=== PATIENT | male | born 2000 | race Caucasian/White ===

== ENCOUNTER 2023-12-27 18:53 | Outpatient (OUT) | payer OTHER, SELFPAY ==
--- NOTE | 2023-12-27 19:21 | XR_ITS ---
The [address] [address] Patient Name: STEPHANY SANTOS MRN: [id number] date: 2000 Sex: M Assigned Patient Location: [facility] Current Patient Location: Accession/Order Number: [id number] Exam Date: 12/27/2023 19:26 Report Date: 12/28/2023 06:15 At the request of: RANGEL MCKENNA Procedure: XR thoracic spine 2V Three views of the thoracic spine INDICATION: Pain COMPARISON: None XR/XR thoracic spine 2V IMPRESSION: No significant multilevel degenerative changes of the thoracic spine without evidence for acute fracture or subluxation. Soft tissues grossly unremarkable. Electronically authenticated by: BETH WYATT Date: 12/28/2023 06:15
--- NOTE | 2023-12-27 19:21 | XR_ITS ---
The [address] [address] Patient Name: STEPHANY SANTOS MRN: [id number] date: 2000 Sex: M Assigned Patient Location: RAD Current Patient Location: [facility] Accession/Order Number: [id number] Exam Date: 12/27/2023 19:26 Report Date: 12/28/2023 06:44 At the request of: RANGEL MCKENNA Procedure: XR lumbar spine 2-3V EXAMINATION: XR lumbar spine 2-3V HISTORY: Low back pain at multiple sites M54.50 COMPARISON: No relevant comparison available. FINDINGS: BONES: No significant spondylosis, scoliosis, fracture, or visible bony lesion. DISC SPACES: No significant disc height narrowing, subluxation, or endplate abnormality. PARASPINOUS: Negative. No paraspinous abnormality is seen. OTHER: Negative. XR/XR lumbar spine 2-3V IMPRESSION: 1. No appreciable acute abnormality or degenerative changes. Electronically authenticated by: STEPHANIE LACY Date: 12/28/2023 06:44
== END 2023-12-27 18:54 | disposition home or self-care (01) ==
LOC: RAD 18:58
PROVIDERS: PCP Family Medicine; Visit Provider Family Medicine
DX: M54.50 Low back pain, unspecified (principal)
CPT/HCPCS: 72070; 72100

== ENCOUNTER 2025-03-23 06:43 | Outpatient (OUT) | payer OTHER, SELFPAY ==
--- OUTSIDE RECORDS SUMMARY | 2025-03-09 07:25 | XMS_ITS ---
Author Organization The [facility] in [place] Address [address] [place] [address] Care Team Providers Care Allergy And Immunology Specialist Name Role Phone Arnoldo Morales Primary Care Provider REASON FOR VISIT EMG Results- Encounters Encounter Location Date Provider Diagnosis [facility] [address] [place] [address] 03/09/2025 Arnoldo Morales Paresthesia of arm R20.2 Assessments Encounter Date Diagnosis (ICD Code) Assessment Notes Treatment Notes Treatment Clinical Notes Section Notes 03/09/2025 Paresthesia of arm (ICD-10 - R20 .2) Plan Of Treatment Pending Test Test Name Order Date MRI Cervical Spine w/o contrast * 2024 Progress Notes * German PURIDOB:[birth year] (25 yo M)Acc No.[id number]:03/09/2025 Patient:?German PURI :2000???Age:25 Y???Sex:MalePhone:[phone] Address:[address] [place] [address], [address] Subjective: * Chief Complaints: * E MG Results- * Medical History: * Surgical History: * Hospitalization/Major Diagno stic Procedure: * Medications: Objective: * Vitals: * Physical Examination: ??? Assessment: * Assessment: 1.?Paresthesia of arm - R20.2 (Primary)??? Plan: * Treatment: ?Imaging: MRI Cervical Spine w/o contrast * * Procedure Codes: * true * Date:?Generated for Printing/Faxing/eTransmitting on:?03/23/2025 06:46 AM EST
--- NOTE | 2025-03-23 06:46 | MR_ITS ---
The [address] [address] Patient Name: STEPHANY SANTOS MRN: [id number] date: 2000 Sex: M Assigned Patient Location: MRI Current Patient Location: MRI Accession/Order Number: [id number] Exam Date: 03/23/2025 06:50 Report Date: 03/23/2025 09:48 At the request of: RANGEL MCKENNA MD Procedure: MR cervical spine wo con EXAMINATION: MRI OF THE CERVICAL SPINE WITHOUT CONTRAST CLINICAL DATA: paresthesia of arm TECHNIQUE: Multiecho imaging was performed in the sagittal and axial plane without contrast administration. FINDINGS: Minimal straightening and minimal reversal normal cervical lordosis. Cervical vertebral heights, alignment and bone marrow signal is otherwise unremarkable. Minor disc desiccation C4-C5. Incidental vertebral hemangioma at T1. Prevertebral paraspinal soft tissues unremarkable. Cervical cord demonstrates normal signal morphology. C2-C3: Minor facet arthropathy. Otherwise no significant disease, canal neural or neural foraminal narrowing identified. C3-C4: Minor facet arthropathy. Mild left-sided uncovertebral spurring causing mild left foraminal narrowing. Right foramen and canal patent. No significant disease or disc protrusion. C4-C5: Minimal uncovertebral spurring left greater than right. Mild right facet arthropathy. Minimal left facet arthropathy. Otherwise no significant disc disease or disc protrusion. Mild left greater than right neural foraminal narrowing. Canal is patent. C5-C6: Minimal facet arthropathy. Otherwise no significant disease central canal or neural foraminal narrowing identified. No focal protrusion. C6-C7: Mild facet arthropathy. Otherwise no significant disease is canal neural foraminal narrowing identified C7-T1: Mild right facet arthropathy. No significant disease is canal neural foraminal narrowing identified. MR/MR cervical spine wo con IMPRESSION: Overall mild degenerative changes. No findings to suggest an underlying for the reported bilateral paresthesias. Impression dictated by: Gibson Peralta M.D. 03/23/2025 9:48 AM Dictation Location: [place] [address] Electronically authenticated by: [id number] Y Date: 03/23/2025 09:48
--- OUTSIDE RECORDS SUMMARY | 2025-03-23 06:46 | XMS_ITS | Clinical Summary ---
Author Organization [employer] Address [id number] [address] [place] [address] Care Team Providers Care Gas Plant Repairer Name Role Phone Owen Morales MD Primary Care Provider [phone] Allergies No known active allergies Medications No known medications Social History Tobacco UseTypesPacks/DayYears UsedDateSmoking Tobacco: Never AssessedChildcare AnswerDate HtyxekquAwiksqsxsIheisad46/12/2019EmploymentAnswerDate Recorded YutjhmbucjIhoziap04/12/2019Hunger ScreeningAnswerDate RecordedWithin the past 12 months we worried whether our food would run out before we got money to buy more.Never True05/08/2024Within the past 12 months the food we bought just didn't last and we didn't have money to get more.Never True05/08/2024Sex and Gender InformationValueDate RecordedSex Assigned at BirthNot on fileLegal Sex Male10/29/2014 12:02 PM EDTGender IdentityNot on fileSexual OrientationNot on file Last Filed Vital Signs Vital SignReadingTime TakenCommentsBlood Zltmczib142/8605/08/2024 5:45 PM EST Cgvji572505/08/2024 5:45 PM ROZBbrechfyfcj81.9 ??C (98.5 ??F)05/08/2024 5:45 PM ESTRespiratory Mknz667705/08/2024 5:45 PM ESTOxygen Vhlkxtfwkj55%05/08/2024 5:45 PM ESTInhaled Oxygen Concentration--Xicona769.7 kg (233 lb)05/08/2024 5:45 PM UZRPhryiw982.9 cm (6')05/08/2024 5:45 PM ESTBody Mass Index31.602 5:45 PM EST Plan of Treatment Health MaintenanceDue DateLast DoneCommentsDepression Xqopimrmw35/26/2010Tobacco Gtydhgedj57/26/2010dult BMI Follow Up Plan02/19/2016DTaP,Tdap and Td Vaccines (7 - Td or Tdap)/10/2010, 11/20/2003, 01/06/2000, Additional history existsCOVID-19 Vaccine ( season)/11/2020, 11/11/2020 Influenza Lciiuyo1011/24/2024dult BMI Keezyggud87 [employer] Not on file Insurance Care Teams Team MemberRelationshipSpecialtyStart DateEnd Owen Morales MD [address] [facility], [place] [address] PCP - [facility]05/08/24
--- OUTSIDE RECORDS SUMMARY | 2025-03-23 06:46 | XMS_ITS | Clinical Summary ---
Author Organization The [facility] Address [address] [place] [address] Care Team Providers Care Health Sciences Department Chair Name Role Phone Unavailable Primary Care Provider Unavailabl e Social History Tobacco UseTypesPacks/DayYears UsedDateSmoking Tobacco: Never AssessedSex and Gender InformationValueDate RecordedSex Assigned at BirthNot on fileLegal Sex Male09/21/2021 11:59 PM EDTGender IdentityNot on fileSexual OrientationNot on file Last Filed Vital Signs Vital SignReadingTime TakenCommentsBlood Vhkvmmlp944/65004/28/2019 9:12 AM EST Zynim25152/03/2020 9:12 AM ESTTemperature--Respiratory Rate--Oxygen Saturation 99%01/06/2019 2:21 PM EDTInhaled Oxygen Concentration--Lwhnps58 kg (172 lb) 04/28/2019 9:08 AM YOTAbgapa265.9 cm (6')04/28/2019 9:04 AM ESTBody Mass Index 23.33004/28/2019 9:04 AM EST Plan of Treatment Not on file
--- OUTSIDE RECORDS SUMMARY | 2025-03-23 06:46 | XMS_ITS | CCD ---
Author Organization [facility] CliniSymt Care Team Providers Care Procurement Inspector Name Role Phone PHYSICIAN, DEFAULT Unavailable Unavailable PHYSICIAN, DEFAULT Unavailable Unavailable BALA, DR MULTANI Primary Care Unavailable PAY, DR ARREDONDO Admitting Unavailable PAY, DR ARREDONDO Attending Unavailable PAY, DR ARREDONDO Consulting Unavailable GRECHNY, PREETI ALVARADO Consulting Unavailable SANDRA, NOEMY Consulting Unavailable HOY, DR MULTANI Attending Unavailable HOY, DR MULTANI Consulting Unavailable LISETTEY, DR MULTANI Primary Care Unavailable LISETTEY, DR MULTANI Admitting Unavailable ZIEBER, DR STEPHANIE Clinton Consulting Unavailable RANGEL MCKENNA Primary Care Unavailable RANGEL MCKENNA Referring Unavailable RANGEL MCKENNA Primary Care Unavailable Problems Active Problems Problem ClassificationProblemDateDocumented DateEpisodic/ChronicDeficiency and other anemia (1 source)Anemia, unspecified; Translations: [ANEMIA UNSPECIFIED]Onset: 77-02-7504QhnonuryNtkaorzl mellitus without complication (1 source)Other abnormal glucose; Translations: [OTHER ABNORMAL GLUCOSE]Onset: 31-37-8154GjoqllrvY Codes: Fall (2 sources)Fall from, out of or through roof, initial encounter; Translations: [Unspecified fall, initial encounter]Onset: 08-86-9656QfqezhawC Codes: Fall (1 source)FallOnset: 13-31-1092Isxhxzbc; including migraine (4 sources)Migraine, unspecified, not intractable, without status migrainosus; Translations: [MIGRAINE UNS NOTINTRACT W/O SM]Onset: 57-51-9892Bebwgfb Unclassified (1 source)Low back pain, unspecified; Translations: [Low back pain, unspecified] Onset: 44-27-8976Gsoxraesiomd (1 source)Fall - WCOnset: 05-08-2024 Past or Other Problems Problem ClassificationProblemDateDocumented DateEpisodic/ChronicOther injuries and conditions due to external causes (3 sources)Unspecified injury of right lower leg, initial encounter; Translations: [UNS INJURY RT LOWER LEG INITIAL ENC]Onset: 08-36-3059Dtanruwy Superficial injury; contusion (2 sources)Contusion of right lower leg, initial encounter; Translations: [Abrasion, right lower leg, initial encounter]Onset: 48-32-7465Gdkwacjs Results Test NameValueInterpretationReference RangeFacilityXR SPINE LUMBAR MIN 4 VWSon 28-71-0533ZM SPINE LUMBAR MIN 4 VWSXR SPINE LUMBAR MIN 4 VWS XR SPINE LUMBAR MIN 4 VWS INDICATION: Low back pain at multiple sites. Low back pain FINDINGS: Satisfactory alignment of the lumbar spine. The vertebral body heights and intervertebral disc space heights are preserved. No fracture. No malalignment. The posterior elements are intact on oblique views. No pars defect. The SI joints are symmetric. IMPRESSION: 1. Unremarkable lumbar spine radiographs. Finalized by Jeffery Gayle MD on 05/20/2024 4:42 [facility] P[facility] 1 OR 2 VWSon [id number] PELVIS 1 OR 2 VWSXR PELVIS 1 OR 2 VWS XR PELVIS 1 OR 2 VWS HISTORY: fall. [ COMPARISON: none IMPRESSION: No displaced or pelvic fracture. Prominent femoral head neck junctions, which may be seen in setting of femoral acetabular impingement. Finalized by Meliton Nolen MD on 05/08/2024 6:23 [facility] HospitalXR SPINE LUMBAR 2 OR 3 VWSon [id number] SPINE LUMBAR 2 OR 3 VWSXR SPINE LUMBAR 2 OR 3 VWS XR SPINE LUMBAR 2 OR 3 VWS HISTORY: fall. Back pain COMPARISON: none IMPRESSION: Preserved lumbar vertebral body heights. No substantial listhesis. Moderate disc height loss at L4-5. Moderate colonic stool burden. Finalized by Meliton Nolen MD on 05/08/2024 6:24 [facility] HospitalINSULINon 50-77-1634Cdlbszf38.5 uIU/mLNormal2.6-24.9[facility] CenterComment on above:Performed By: #### INSULIN #### [facility] [address] [place] [address] Dr. Milly Krishnamurthy AUTO DIFFon 78-97-2560YUTV #0.0 103/ulNormal0.0-0.1The [facility] HospitalComment on above:Performed By: #### CBC #### [facility] [address] [place] [address] Dr. Milly MontoyaBasophils/100 WBC (Bld)0.4 %Normal0.2-2.0The [facility] Comment on above:Performed By: #### CBC #### [facility] [address] [place] [address] Dr. Milly Collado #0.0 103/ulNormal0.0-0.7The [facility] HospitalComment on above: Performed By: #### CBC #### [facility] [address] [place] [address] Dr. Milly Brodyosinophils/100 WBC (Bld)0.0 %Critically low0.9-7.0The [facility] HospitalComment on above:Performed By: #### CBC #### [facility] [address] [place] [address] Dr. Milly Brodyrythrocyte distribution width (RBC) [Ratio]11.9 %Cbkxcy41.0-15.0 The [facility] HospitalComment on above:Performed By: #### CBC #### [facility] [address] [place] [address] Dr. Milly MontoyaHematocrit (Bld) [Volume fraction]43.2 %Vzmwbc27.0-54.0The [facility] HospitalComment on above:Performed By: #### CBC #### [facility] [address] [place] [address] Dr. Milly MontoyaHemoglobin (Bld) [Mass/Vol]15.6 g/lIKxrfyu05.0-18.0The [facility] HospitalComment on above:Performed By: #### CBC #### [facility] [address] [place] [address] Dr. Milly Rachel #0.02 10e3/ulNormal0.00-0.03The [facility] HospitalComment on above:Performed By: #### CBC #### [facility] [address] [place] [address] Dr. Milly Rachel %0.3 %Normal0.0-0.5The [facility] HospitalComment on above: Performed By: #### CBC #### [facility] [address] [place] [address] Dr. Milly Hurd #1.8 103/ulNormal1.2-3.8The [facility] HospitalComment on above:Performed By: #### CBC #### [facility] [address] [place] [address] Dr. Milly Parkerhocytes/100 WBC (Bld)22.8 %Bhvgfz22.5-60.0The [facility] HospitalComment on above:Performed By: #### CBC #### [facility] [address] [place] [address] Dr. Milly AgeeSELECT [facility]ICAL [facility] DIFF REQNONormalThe [facility] HospitalComment on above: Performed By: #### CBC #### [facility] [address] [place] [address] Dr. Milly Jaime (RBC) [Entitic mass]29.8 xdQrifuv84.9-34.0The [facility] HospitalComment on above:Performed By: #### CBC #### [facility] [address] [place] [address] Dr. Milly Delgado (RBC) [Mass/Vol]36.1 g/dLCritically high29.9-35.2The [facility] HospitalComment on above:Performed By: #### CBC #### [facility] [address] [place] [address] Dr. Milly Delgado (RBC) [Entitic vol]82.6 lQLfgeri10.0-94.0The [facility] HospitalComment on above:Performed By: #### CBC #### [facility] [address] [place] [address] Dr. Milly Delacruz #0.6 103/ulNormal0.3-0.8The [facility] HospitalComment on above:Performed By: #### CBC #### [facility] [address] [place] [address] Dr. Milly Mooreocytes/100 WBC (Bld)6.9 %Normal1.7-12.0The [facility] Comment on above:Performed By: #### CBC #### [facility] [address] [place] [address] Dr. Milly Childs #5.6 103/ulNormal1.4-6.5The [facility] HospitalComment on above:Performed By: #### CBC #### [facility] [address] [place] [address] Dr. Milly Hansonophils/100 WBC (Bld)69.6 %Toyurb11.0-75.0The [facility] HospitalComment on above:Performed By: #### CBC #### [facility] [address] [place] [address] Dr. Milly Carrera mean volume (Bld) [Entitic vol]9.5 fLNormal9.5-13.5The [facility] HospitalComment on above:Performed By: #### CBC #### [facility] [address] [place] [address] Dr. Milly KhanT278 103/nuMzrtaa376-345Bwc [facility] HospitalComment on above: Performed By: #### CBC #### [facility] [address] [place] [address] Dr. Milly MontoyaRBC5.23 106/ulNormal4.70-6.10The [facility] HospitalComment on above:Performed By: #### CBC #### [facility] [address] [place] [address] Dr. Milly MontoyaWBC8.0 103/ulNormal4.0-11.0The [facility] HospitalComment on above: Performed By: #### CBC #### [facility] [address] [place] [address] Dr. Milly TAI INDEX T7on 89-47-8281YYJ2.52Rolmhu5.30-4.50The [facility] HospitalComment on above:Performed By: #### LIPID, T7, CMP, TSH #### [facility] [address] [place] [address] Dr. Milly MontoyaT3U39.0 %Tmiwlh54.0-40.0The [facility] HospitalComment on above: Performed By: #### LIPID, T7, CMP, TSH #### [facility] [address] [place] [address] Dr. Milly MontoyaT4 [Mass/Vol]8.80 ug/dLNormal4.50-12.10The [facility] Comment on above:Performed By: #### LIPID, T7, CMP, TSH #### [facility] [address] [place] [address] Dr. Milly MontoyaGLYCOHEMOGLOBIN A1Con 01-78-2656GDH RECOMMENDATIONSEE BELOWNormal The [facility] HospitalComment on above:Result Comment: ADA RECOMMENDED LIMIT 4.0 - 6.0 ADA THERAPEUTIC TARGET < 7.0 ACTION SUGGESTED > 7.0Performed By: #### A1C #### [facility] [address] [place] [address] Dr. Milly MontoyaGlucose [Mass/Vol]97 mg/dLNormalThe [facility] HospitalCommclaren lapeer region on above:Performed By: #### A1C #### [facility] [address] [place] [address] Dr. Milly MontoyaHbA1c (Bld) [Mass fraction]5.0 %Normal4.5-6.2The [facility] HospitalComment on above:Performed By: #### A1C #### [facility] [address] [place] [address] Dr. Milly MontoyaIROKeerthi 00-12-3700Nfsz [Mass/Vol]115.0 ug/mKXbuori39.0-175.0The [facility] HospitalComment on above:Performed By: #### IRON #### [facility] [address] [place] [address] Dr. Milly MontoyaLIPID PROFILEon 97-20-5560IEGQ-HDL RATIO NORMSCommunity Memorial HospitalComment on above:Result Comment: 3.3 - 4.4 LOW RISK 4.4 - 7.1 AVERAGE RISK 7.1 - 11.0 MODERATE RISK >11.0 HIGH RISKPerformed By: #### LIPID, T7, CMP, TSH #### [facility] [address] [address] [address] Milly MontoyaCholesterol [Mass/Vol]196 mg/dLNormal<=200[facility] Comment on above:Performed By: #### LIPID, T7, CMP, TSH #### [facility] [address] [address] [address] Milly Paulinoesterol in HDL [Mass/Vol]48 mg/iBEhexbm74-17CxlMetrohealth Parma Medical CenterComment on above:Performed By: #### LIPID, T7, CMP, TSH #### [facility] [address] [place] [address] Dr. Milly Paulinoesterol in LDL [Mass/Vol]126.0 mg/dLCleveland Clinic Union HospitalComment on above:Performed By: #### LIPID, T7, CMP, TSH #### [facility] [address] [place] [address] Dr. Milly Meyer.total/Cholesterol in HDL [Mass ratio]4.1 {ratio} NormalMetrohealth Parma Medical CenterComment on above:Performed By: #### LIPID, T7, CMP, TSH #### [facility] [address] [place] [address] Dr. Milly Griffin NORMAL> or = 60 mg/dl - LOW CARDIOVASCULAR RISK <40 mg/dl - HIGH CARDIOVASCULAR RISKCleveland Clinic Union HospitalComment on above:Performed By: #### LIPID, T7, CMP, TSH #### [facility] [address] [place] [address] Dr. Milly Sandhu CALC NORMALSEE [facility] HospitalComment on above:Result Comment: <100 mg/dl OPTIMAL 100 - 129 mg/dl NEAR OR ABOVE OPTIMAL 130 - 159 mg/dl BORDERLINE HIGH 160 - 189 mg/dl HIGH >190 mg/dl VERY HIGH Performed By: #### LIPID, T7, CMP, TSH #### [facility] [address] [address] [address] Milly MontoyaTriglyceride [Mass/Vol]110 mg/dLNormal<=150[facility] Comment on above:Performed By: #### LIPID, T7, CMP, TSH #### [facility] [address] [address] [address] Milly MontoyaVLDL CALC22.0 mg/dLNormMorrow County HospitalComment on above: Performed By: #### LIPID, T7, CMP, TSH #### [facility] [address] [address] [address] Milly MontoyaMRI BRAIN WO CONon [id number] BRAIN WO CONEXAMINATION: MRI BRAIN WO CON, 04/21/2022 1:43 PM EST HISTORY: Migraine for 2 weeks; dizziness when turning head side to side COMPARISON: None. TECHNIQUE: MRI of the brain was performed without IV contrast. FINDINGS: CEREBRUM: No edema, hemorrhage, mass, acute infarction, or inappropriate atrophy. CEREBELLUM: No edema, hemorrhage, mass, acute infarction, or inappropriate atrophy. BRAINSTEM: No edema, hemorrhage, mass, acute infarction, or inappropriate atrophy. CSF SPACES: Ventricles, cisterns, and sulci are appropriate for age. No hydrocephalus, subarachnoid hemorrhage, or mass. SKULL: No mass or other significant visible lesion. SINUSES: Limited views demonstrate no significant mucosal thickening or fluid. ORBITS: Limited views are unremarkable. OTHER: Negative. IMPRESSION: 1. Normal MRI of the brain. 2. No appreciable abnormality of the middle ear or internal auditory canals. 3. Clear sinuses. Electronically authenticated by: STEPHANIE LACY Date: 2022-04-21 14:49[facility] HospitalPROF 14(COMP METB)on 86-80-0007Cxsjojd [Mass/Vol]4.4 g/dLNormal 3.4-5.0The [facility] HospitalComment on above:Performed By: #### LIPID, T7, CMP, TSH #### [facility] [address] [address] [address] Milly MontoyaAlbumin/Globulin [Mass ratio]1.3 {ratio}NormalThe [facility] HospitalComment on above:Performed By: #### LIPID, T7, CMP, TSH #### [facility] [address] [place] [address] Dr. Milly Shukla [Catalytic activity/Vol]89 U/BOqcilt92-193Yye [facility] HospitalComment on above:Performed By: #### LIPID, T7, CMP, TSH #### [facility] [address] [place] [address] Dr. Milly Hernandez [Catalytic activity/Vol]38 U/KFuvczn51-08Ela [facility] HospitalComment on above:Performed By: #### LIPID, T7, CMP, TSH #### [facility] [address] [place] [address] Dr. Milly MontoyaAnion gap [Moles/Vol]11.7 mmol/LNormalThe [facility] Comment on above:Performed By: #### LIPID, T7, CMP, TSH #### [facility] [address] [place] [address] Dr. Milly Esteban [Catalytic activity/Vol]28 U/HIlftmb44-93Ezx [facility] HospitalComment on above:Performed By: #### LIPID, T7, CMP, TSH #### [facility] [address] [place] [address] Dr. Milly MontoyaBilirubin [Mass/Vol]0.6 mg/dLNormal0.2-1.0The [facility] Comment on above:Performed By: #### LIPID, T7, CMP, TSH #### [facility] [address] [place] [address] Dr. Milly MontoyaCalcium [Mass/Vol]9.5 mg/dLNormal8.5-10.1The [facility] Comment on above:Performed By: #### LIPID, T7, CMP, TSH #### [facility] [address] [place] [address] Dr. Milly MontoyaChloride [Moles/Vol]102 mmol/ZJapols73-742Dby [facility] Comment on above:Performed By: #### LIPID, T7, CMP, TSH #### [facility] [address] [address] [address] Milly MontoyaCO2 [Moles/Vol]30.9 mmol/XVvopsw48.0-32.0The [facility] Comment on above:Performed By: #### LIPID, T7, CMP, TSH #### [facility] [address] [address] [address] Milly MontoyaCreatinine [Mass/Vol]1.03 mg/dLNormal0.70-1.30The [facility] HospitalComment on above:Performed By: #### LIPID, T7, CMP, TSH #### [facility] [address] [address] [address] Milly BrodyGFR-AF SLOVENIAN>60Normal>=60The [facility] HospitalComment on above:Performed By: #### LIPID, T7, CMP, TSH #### [facility] [address] [address] [address] Milly BrodyGFR-NON AF SLOVENIAN>60Normal>=60The [facility] HospitalComment on above:Performed By: #### LIPID, T7, CMP, TSH #### [facility] [address] [address] [address] Milly MontoyaGlobulin (S) [Mass/Vol]3.3 g/dLNormalThe [facility] HospitalComment on above:Performed By: #### LIPID, T7, CMP, TSH #### [facility] [address] [address] [address] Milly MontoyaGlucose [Mass/Vol]84 mg/pEErybwx60-000Xkt [facility] Comment on above:Performed By: #### LIPID, T7, CMP, TSH #### [facility] [address] [address] [address] Milly MontoyaPotassium [Moles/Vol]4.6 mmol/LNormal3.5-5.1The [facility] Comment on above:Performed By: #### LIPID, T7, CMP, TSH #### [facility] [address] [address] [address] Milly MontoyaProtein [Mass/Vol]7.7 g/dLNormal6.4-8.2The [facility] Comment on above:Performed By: #### LIPID, T7, CMP, TSH #### [facility] [address] [address] [address] Milly MontoyaSodium [Moles/Vol]140 mmol/QYnqxhf822-048Qnz [facility] Comment on above:Performed By: #### LIPID, T7, CMP, TSH #### [facility] [address] [address] [address] Milly MontoyaUrea nitrogen [Mass/Vol]10.0 mg/dLNormal7.0-18.0The [facility] HospitalComment on above:Performed By: #### LIPID, T7, CMP, TSH #### [facility] [address] [address] [address] Milly Young nitrogen/Creatinine [Mass ratio]9.7 mg/mgNoPeoples HospitalComment on above:Performed By: #### LIPID, T7, CMP, TSH #### [facility] [address] [address] [address] Milly Patrick 62-13-6721GPD4.034 uIU/mLNormal0.358-3.740[facility] CenterComment on above:Performed By: #### LIPID, T7, CMP, TSH #### [facility] [address] [place] [address] Dr. Milly MontoyaXR TIB_FIB RT 2Von 42-33-2271BD TIB_FIB RT 2VEXAM: XR TIB_FIB RT 2V HISTORY: Pain in lower limb COMPARISON: None. TECHNIQUE: Frontal and lateral views of the right tibia and fibula are performed. FINDINGS: There is no acute fracture. The bony structures are intact. The soft tissues are unremarkable. No radio opaque foreign body. IMPRESSION: No acute bony abnormality. Electronically authenticated by: NOEMY FLORES Date: 2021-04-29 19:00[facility] Encounters Encounter DateEncounter TypeCare ProviderFacilityStart: 05-20-2024 End: 91-79-2534ycnwjegbjePRQBYLLLos Angeles County Los Amigos Medical Centerrt: 05-08-2024 End: 37-42-7168Vppqlenzl department patient visitDODANITZA [facility]tart: 04-21-2022 End: 40-76-9659ywuafeqorpTQ DOUGLAS HOYFacility:Q9Vzqcp: 04-29-2021 End: 65-65-6058gobrdoksanAA RANGEL HOYFacility:G9Gyjek: 12-21-2016 End: 12-84-2761JtbenlqedmOAQSTVT PHYSICIANFacility:[facility] Payers DatePayer CategoryPayerPolicy [id number]'s [id number] [id number] [id number] Summary Purpose Family History No Family History Records FoundNo Family History Records FoundNo Family History Records Found Advance Directives No Advanced Directives Records FoundNo Advanced Directives Records FoundNo Advanced Directives Records Found Additional Source Comments (unrecognized sect ion and content) No Status Records FoundNo Status Records FoundNo Status Records Found INFORMATION SOURCE (unrecogn ized section and content) DATE CREATED AUTHOR 09/19/2017 [facility] DATE CREATED AUTHOR AUTHOR'S ORGANIZ ATION 04/26/2022 [facility] DATE CREATED AUTHOR AUTHOR'S ORGANIZ ATION 05/22/2024 [facility] FOR RECORDS PERTAINING TO PATIENTS WHO ARE OR HAVE BEEN ENROLLED IN A CHEMICAL DEPENDENCY/SUBSTANCEABUSE PROGRAM, SOME INFORMATION MAY BE OMITTED. This clinical summary was aggregated from multiple sources. Caution should be exercised in using it in the provision of clinical care. This summary normalizes information from multiple sources, and as a consequence, information in this document may materially change the coding, format and clinical context of patient data. In addition, data may be omitted in some cases. CLINICAL DECISIONS SHOULD BE BASED ON THE PRIMARY CLINICAL RECORDS. [employer] [facility]. provides no warranty or guarantee of the accuracy or completeness of information in this document.
--- OUTSIDE RECORDS SUMMARY | 2025-03-23 06:46 | XMS_ITS | Patient Health Record ---
Author Organization [facility] [place] Address [address] [place] [address] Care Team Providers Care Mortgage Funder Name Role Phone Arnoldo Morales Primary Care Provider Helen Mistry Unavailable [phone] Allergies No Known Allergies Reason For Referral Reason requesting NCS left arm Diagnosis 1 Paresthesia of arm ( R20.2) Referral Organization [facility] Referring Provider First Name Helen Referring Provider Last Name Fidelia Referring Provider Speciality Family Med icine Referred Provider Karen Yoder Referred Provider Specialty Neurology Referral Priority Routine Social History Tobacco Use: Social History Observation Description Date Details (start date - stop date) Never Smoker NA - NA Tobacco Use/Smoking Question Answer Notes Patient is a nonsmoker Alcohol Screen (Audit-C) Question Answer Notes Did you have a drink containing alcohol in the p ast year? No Thjgwj0GznuptforsslgdTcuggzloZIIZZ-U (Standard) Question Answer Notes Did you have a drink containing alcohol in the p ast year? No Ymkvtt8PaxqatlevcyajqTgiytvnf Problems Problem Type SNOMED Code ICD Code Onset Dates Problem Status W/U Status Risk Notes Problem Asthma (182168627) Asthma (J45.909) ActiveconfirmedProblemMigraine (50728991)Migraine (G43.909)Activeconfirmed ProblemAcute sinusitis (78082803)Acute sinusitis (J01.90)ActiveconfirmedProblem Pharyngitis (320825929)Pharyngitis (J02.9)ActiveconfirmedProblemParesthesia of arm (29963278)Paresthesia of arm (R20.2)ActiveconfirmedProblemLow back pain (finding) (903882295)Low back pain at multiple sites (M54.50)Activeconfirmed ProblemPostural orthostatic tachycardia syndrome (102240055)Postural orthostatic tachycardia syndrome (G90.A)Activeconfirmed Vital Signs Blood pressure diastolic 88 mm Hg 02/27/2025 Qebrjr04 in02/27/2025lood pressure iwbwzqnv709 mm Hg02/27/20254915Ijmizb086.0 lbs 02/27/2025BMI32.68 kg/m202/27/2025 Encounters Encounter Location Date Provider Diagnosis [facility] [address] [place] [address] 05/19/2024 Arnoldo Hoy Low back pain at multiple sites M54.50 [facility] [address] [place] [address] 02/27/2025 Helen Mistry Paresthesia of arm R20.2 [facility] [address] [place] [address] 05/21/2024 Arnoldo Littlejohny [facility] [place] [address] [facility] [place] [address]/15/2025Doug HoyParesthesia of arm R20.2 Assessments Encounter Date Diagnosis (ICD Code) Assessment Notes Treatment Notes Treatment Clinical Notes Section Notes 05/19/2024 Low back pain at multiple sites (ICD-10 - M54.50) 02/27/2025Paresthesia of arm (ICD-10 - R20.2)discussed PT , defers for now 03/09/2025Paresthesia of arm (ICD-10 - R20.2)05/19/2024OtherRecommended to rest and use a heating pad on the area. Take NSAIDs for pain as needed Plan Of Treatment Pending Test Test Name Order Date MRI Cervical Spine w/o contrast * 2024 XR Spine Thoracic 2 Views 12/27/2023 XR Spine Lumbosacral 2 or 3 Views 2023 XR LSPINE MIN 4 VIEWS 05/19/2024 Insurance Providers Payer Name Payer Address Payer Phone Subscriber Number Group Number Insured Name Patient Relationship to Insured Coverage Start Date Coverage End Date MMO [employer] [address] [place] [address] [id number] German Puri Self - patient is the insured Medical (General) History Medical History History ICD Code Migraine G43.909 Otitis media H66.90 Postural orthostatic tachycardia syndrom e G90.A Headache, acute 784.0 Tension headache G44.209 Asthma J45.909 Surgical History Surgery Date(Month/Year) denies Hospitalization History Reason Date(Month/Year) Migraine
== END 2025-03-23 06:44 | disposition home or self-care (01) ==
LOC: MRI 06:43
PROVIDERS: PCP Family Medicine; Visit Provider Family Medicine
DX: R20.2 Paresthesia of skin (principal); M50.30 Other cervical disc degeneration, unspecified cervical region
CPT/HCPCS: 72141